=== PATIENT | male | born 1955 | race Caucasian/White ===

== ENCOUNTER 2020-02-14 12:40 | Emergency (ER) | payer OTHER ==
[~2020-02-14] VITALS: Ht 185.4 cm; Wt 106.6 kg
[~2020-02-14 12:40] MED LIST: BUPROPION XL150 MG PO; CEPHALEXIN500 MG PO; HYDROCHLOROTHIA25 MG PO; LASIX20 MG PO; LOVASTATIN20 MG PO; NORCO 5-325 TA1 EACH PO; POTASSIUM CHLO10 ME1 PO; POTASSIUM CHLO20 ME1 PO
[2020-02-14] MEDS ORDERED: CO Q-1010 MG PO (12:53)
[2020-02-14] MEDS ORDERED: AUGMENTIN 875-1 EACH PO (13:07)
== END 2020-02-14 13:22 | disposition home or self-care (01) ==
LOC: ED 12:40
DX: S61.412A Laceration without foreign body of left hand, initial encounter (principal); I10 Essential (primary) hypertension; Z85.46 Personal history of malignant neoplasm of prostate; W26.0XXA Contact with knife, initial encounter; Z88.8 Allergy status to other drugs, medicaments and biological substances; Z79.899 Other long term (current) drug therapy
CPT/HCPCS: 12001; 90471; 90715; 99282-25

== ENCOUNTER 2022-09-21 06:33 | Day surgery (SDC) | payer MEDICARE, OTHER ==
[~2022-09-21] VITALS: Ht 182.9 cm; Wt 105.0 kg
[~2022-09-21 06:33] MED LIST changes: +ALEVE220 MG PO; +ALLER-TEC10 MG PO; +AUGMENTIN 875-1 EACH PO; +BENADRYL25 MG PO; +CO Q-1010 MG PO; +FLAXSEED OIL1000 M1 PO; +GLUCOSAMINE CH1 EAC1 PO; +LISINOPRIL5 MG PO; +PRILOSEC OTC20 MG PO; +TYLENOL EXTRA500 MG PO
[2022-09-21 07:18] VITALS: BP 143/75
--- NOTE | 2022-09-21 08:33 | NUR ---
PT ALERT, ORIENTED AND PT HAS HAD SCOPE PREVIOUS. HIS WILL BE HERE AT [place]. ALL QUESTIONS ASKED ANSWERED. PT REQUESTED PRAYER, GAVE BLESSING. WILL FOLLOW NEEDED
--- NOTE | 2022-09-21 09:34 | NUR ---
09/21/22 0934 Gisela Bennett 0910-PATIENT ARRIVED TO PACU ON 2L NC RR EVEN. PATIENT LAYING LEFT LATERAL REACTIVE TO VERBAL STIMULI DENIES PAIN OR NAUSEA. ABDOMEN SOFT. IVF INFUSING. PATIENT DOZES BACK TO SLEEP
[2022-09-21 10:05] VITALS: BP 114/74
--- NOTE | 2022-09-21 13:22 | OR ---
[facility] [address], [place] [address] Signed DATE OF OPERATION: 09/21/2022 SURGEON: Lucho Lockett MD PREOPERATIVE DIAGNOSES: 1. Screening. 2. Minimal diverticulosis. 3. Moderate internal and external hemorrhoids. POSTOPERATIVE DIAGNOSES: 1. Almrxyl-wi-fykvftii sigmoid diverticulosis. 2. Tortuous, narrowed sigmoid colon. 3. A 4 mm polypoid lesion at 35 cm in sigmoid colon. 4. Moderate internal and external hemorrhoids. PROCEDURE: Colonoscopy with hot biopsy. ESTIMATED BLOOD LOSS: None. INDICATIONS: Daniel is a 67-year-old gentleman, asked to see me for a followup screening colonoscopy. He has no family history of colon cancer or polyps. I helped him with his initial screening colonoscopy in 2011 at the age of 55. He had moderate internal and external hemorrhoids at that time with minimal diverticulosis. He had done well with Versed and fentanyl. We asked him to return in 10 years for followup. 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 In the office, I had given him a pamphlet on colonoscopy. We had reviewed the nature of the test. There is risk including, but not limited to gas bloating, crampy abdominal pain, bleeding, perforation requiring surgery, and missed diagnosis. We also reviewed the need for IV conscious sedation. He had expressed understanding and wished to proceed. PROCEDURE NOTE: Daniel was taken into our endoscopy suite and placed in the left lateral decubitus position. He was given a total of 9 mg of Versed and 125 mcg of fentanyl. A digital rectal exam was performed. He does have moderate external hemorrhoids, slightly more on the right than on the left. He has good sphincter tone. The prostate is absent. There were no nodules. No masses. The adult colonoscope was then introduced and advanced all around into the cecum under direct visualization of the camera. It did take a little Electronically Signed By: LUCHO LOCKETT MD 09/21/22 1322 PATIENT NAME: DANIEL ASH OPERATIVE REPORT DATE OF : 57 REPORT #: [id number] PHYSICIAN: LUCHO LOCKETT MD PCP: NO PRIMARY CARE PHYSICIAN REPORT IS CONFIDENTIAL AND NOT TO BE RELEASED WITHOUT AUTHORIZATION [facility] [address] [place], [place] [address] Signed extra sedation and abdominal compression in order to advance the scope direct into the cecum itself. Overall, his prep was good. He had some areas of liquid particulate stool matter, most of that was suctioned out. We slowly withdrawn the scope, and he has some diverticula in the left, sigmoid colon. They were olspdow-gd-zvxgvvzc in size, waadpoo-kp-yblvknoy in number, and scattered about. He had a small lesion next to the diverticulum, may be some granuloma tissue. We biopsied and destroyed it completely with mild cautery. We found that his sigmoid colon was a bit narrowed and tortuous on this occasion. We think his diverticulitis a little more than he had last time. The rectum was unremarkable. Upon retroflexion of the scope, he does have moderate internal hemorrhoid columns as well. After this, the gas was suctioned out, the colonoscope was removed. Daniel tolerated the procedure quite well. RECOMMENDATIONS: I will see Daniel back in my office in 7 to 14 days to review his results. Lucho Lockett MD ALB/MODL /[id number] cc: Patient Chart MD Marianne Valera PA Copies: LUCHO LOCKETT MD ~ Electronically Signed By: LUCHO LOCKETT MD 09/21/22 1322 PATIENT NAME: DANIEL ASH KOSTA OPERATIVE REPORT DATE OF : 57 REPORT #: [id number] PHYSICIAN: LUCHO LOCKETT MD PCP: NO PRIMARY CARE PHYSICIAN REPORT IS CONFIDENTIAL AND NOT TO BE RELEASED WITHOUT AUTHORIZATION
--- NOTE | 2022-09-22 16:58 | PATH ---
[facility] [address] [place], [place] [address] Signed SPECIMEN(S): A SIGMOID POLYP SPECIMEN SOURCE: A. SIGMOID POLYP CLINICAL HISTORY: Screening, hx of diverticulosis, internal and external hemorrhoids. Post Op: Colon polyps, diverticulosis, internal and external hemorrhoids, tortuous colon. FINAL PATHOLOGIC DIAGNOSIS: Sigmoid polyp: - Hyperplastic polyp (two fragments). - Granulation tissue with acute and chronic inflammation (one fragment). JVR:[facility]:C2NR MICROSCOPIC EXAMINATION: Histologic sections of all submitted blocks are examined by light microscopy. These findings, together with the gross examination, support the pathologic diagnosis. GROSS DESCRIPTION: The specimen, labeled and designated "Ash, sigmoid polyp," is received in formalin and consists of three montero soft tissue fragments, ranging from 0.1-0.2 cm. Entirely submitted in (A1). VB (under the direct supervision of a pathologist) The Gross Description was prepared using a voice recognition system. The report was reviewed for accuracy; however, sound-alike word errors, addition and/or deletions may occur. If there is any question about this report, please contact Client Services. PERFORMING LABORATORY: The technical component was performed by [facility], [address] [place] [id number] (CLIA# [id number]). Professional interpretation was performed by [facility] - [facility], [address] [place] [id number] (CLIA#: [id number]). Diagnostician: Westley Stern MD Pathologist Electronically Signed 09/22/2022 PATIENT NAME: TALISHA ASH PATHOLOGY DATE OF : 57 REPORT #: [id number] PHYSICIAN: [facility] PCP: NO PRIMARY CARE PHYSICIAN REPORT IS CONFIDENTIAL AND NOT TO BE RELEASED WITHOUT AUTHORIZATION [address] [place], [place] [address] Signed Copies: ~ PATIENT NAME: TALISHA ASH PATHOLOGY DATE OF : 57 REPORT #: [id number] PHYSICIAN: [facility] PCP: NO PRIMARY CARE PHYSICIAN REPORT IS CONFIDENTIAL AND NOT TO BE RELEASED WITHOUT AUTHORIZATION
== END 2022-09-21 10:15 | disposition home or self-care (01) ==
LOC: DS 06:33 → OPS 06:33
PROVIDERS: ATTEND Colon & Rectal Surgery
PROC: 0DBN8ZX Excision of Sigmoid Colon, Via Natural or Artificial Opening Endoscopic, Diagnostic (ICD-10-PCS; principal; 2022-09-21 08:15)
DX: Z12.11 Encounter for screening for malignant neoplasm of colon (principal); Z85.46 Personal history of malignant neoplasm of prostate; M19.90 Unspecified osteoarthritis, unspecified site; K21.9 Gastro-esophageal reflux disease without esophagitis; I10 Essential (primary) hypertension; E78.5 Hyperlipidemia, unspecified; F32.9 Major depressive disorder, single episode, unspecified; K64.4 Residual hemorrhoidal skin tags; K64.8 Other hemorrhoids; K63.5 Polyp of colon; K63.89 Other specified diseases of intestine; K57.30 Diverticulosis of large intestine without perforation or abscess without bleeding
CPT/HCPCS: 99153; G0500; J2250; J3010; J7121

== ENCOUNTER 2023-03-18 13:48 | Inpatient (IN) | payer MEDICARE, OTHER ==
[~2023-03-18] VITALS: Ht 182.9 cm; Wt 101.6 kg
[2023-03-18 15:34] LABS: BASOPHILS 0.2 % (0-2); EOSINOPHILS 0.4 % (0-6); HEMATOCRIT 47.6 % (35.0-50.0); LYMPHOCYTES 3.8 % (24-44); MCH 30.9 (27-36); MCHC 33.6 g/dl (30-36); MCV 92.1 fl (81-99); MONOCYTES 0.8 % (0-12); NEUTROPHILS 94.8 % (39-80); PLATELET COUNT 226 K/uL (140-440); RBC 5.17 M/ul (4.3-5.7); RDW 13.3 (10.5-15.0)
[2023-03-18 15:45] LABS: BILIRUBIN, URINE POSITIVE (negative); BLOOD/HGB, URINE SMALL (Negative); KETONE, URINE TRACE (Negative); LEUK ESTERASE, URINE NEGATIVE (negative); NITRITE, URINE NEGATIVE (negative)
[2023-03-18 15:51] LABS: WHITE BLOOD CELLS, URINE 0-1 /HPF (0-5)
[2023-03-18 15:52] LABS: BACTERIA, URINE 2+ /hpf (negative); EPITHELIAL CELLS, URINE SQUAMOUS 1+ /lpf (0-1+); REFLEX CULTURE, URINE Yes (No)
[2023-03-18 15:56] LABS: ALBUMIN 4.3 g/dL (3.4-5.0); ALBUMIN/GLOBULIN RATIO 1.34 (1.1-2.4); ALKALINE PHOSPHATASE 327 U/L (46-116); ALT (SGPT) 451 U/L (14-59); ANION GAP 17.8 (7-21); AST (SGOT) 964 U/L (15-37); BILIRUBIN, TOTAL 3.7 ng/dL (0.2-1.0); BUN/CREATININE RATIO 11.25 (6.0-28.6); CALCIUM 9.6 mg/dL (8.5-10.1); CARBON DIOXIDE 26 mmol/L (21-32); CHLORIDE 100 mmol/L (98-107); CREATININE, SERUM 1.51 mg/dL (0.70-1.30); GLOMERULAR FILTRATION RATE,EST 51 mL/min (>60); POTASSIUM 3.8 mmol/L (3.5-5.1); PROTEIN, TOTAL 7.5 g/dL (6.4-8.2); UREA NITROGEN 17 mg/dL (7-18)
[2023-03-18 18:20] VITALS: BP 115/67
--- NOTE | 2023-03-18 18:41 | NUR ---
PATIENT TO THE MEDICAL FLOOR. PT ALERT AND ORIENTED X4. PATIENT REPORTS 3/10 ABDOMINAL PAIN, NO NAUSEA AT THIS MOMENT. IV FLUIDS STARTED AT THIS TIME PER PROVIDER ORDER. VITAL SIGNS STABLE. SECOND BLOOD CULTURES OBTAINED FROM LAB AT THIS TIME. PATIENT ORIENTED TO ROOM AND CALL LIGHT.
[2023-03-18 19:44] VITALS: BP 102/62
--- NOTE | 2023-03-18 23:30 | NUR ---
REPORT RECEIVED FROM GREGORY BRIONES. PT WALKING HALLS AT THIS TIME. NO NEEDS STATED.
--- NOTE | 2023-03-19 00:09 | NUR ---
NEW BAG IV FLUIDS PROVIDED. IV WNL, FLUSHED WELL. URINAL EMPTIED. PT DENIES PAIN. PT STATES NO OTHER NEEDS AT THIS TIME. CALL LIGHT IN REACH.
[2023-03-19 01:53] VITALS: BP 108/59
--- NOTE | 2023-03-19 02:08 | NUR ---
VS. I&O AND FOCUSED ASSESSMENT COMPLETED. PT REPORTS MILD ABD DISTENTION. DENIES PAIN. ABD SOFT, NONTENDER, BOWEL TONES ACTIVE. SCHEDULED MED PROVIDED. IV WNL, FLUSHED WELL. EDUCATION PROVIDED ABOUT BOWEL REST AND REDUCING THE AMOUNT OF ICE CHIPS THE PT IS CONSUMING. PT VERBALIZING UNDERSTANDING OF EDUCATION. CALL LIGHT IN REACH.
--- NOTE | 2023-03-19 04:05 | NUR ---
VS AND I&O COMPLETED. SPO2 99% ON RA. PT HAS BEEN NPO WITH CHIPS FOR COMFORT, TOLERATING WELL. PT DENIES PAIN. NO OTHER NEEDS AT THIS TIME. CALL LIGHT IN REACH.
[2023-03-19 04:06] VITALS: BP 133/73
--- NOTE | 2023-03-19 05:29 | NUR ---
SCHEDULED MED PROVIDED. PT DENIES PAIN AT THIS TIME. PT UP WALKING IN HALLS.
[2023-03-19 05:49] LABS: BASOPHILS 0.2 % (0-2); EOSINOPHILS 0.3 % (0-6); HEMATOCRIT 40.4 % (35.0-50.0); HEMOGLOBIN 13.4 g/dL (12.0-18.0); LYMPHOCYTES 1.5 % (24-44); MCH 30.3 (27-36); MCHC 33.2 g/dl (30-36); MCV 91.1 fl (81-99); MONOCYTES 5.8 % (0-12); NEUTROPHILS 92.2 % (39-80); PLATELET COUNT 136 K/uL (140-440); RBC 4.43 M/ul (4.3-5.7); RDW 13.3 (10.5-15.0)
[2023-03-19 06:04] LABS: BUN/CREATININE RATIO 14.72 (6.0-28.6); CALCIUM 8.5 mg/dL (8.5-10.1); CREATININE, SERUM 1.63 mg/dL (0.70-1.30); MAGNESIUM 1.9 mg/dL (1.8-2.4); PHOSPHORUS, INORGANIC 4.3 mg/dL (2.5-4.9)
[2023-03-19 06:33] LABS: ALBUMIN 3.2 g/dL (3.4-5.0); ALBUMIN/GLOBULIN RATIO 1.14 (1.1-2.4); BILIRUBIN, DIRECT 3.7 mg/dL (0.0-0.2); BILIRUBIN, INDIRECT 1.5 (0.1-0.7); BILIRUBIN, TOTAL 5.2 ng/dL (0.2-1.0)
[2023-03-19 06:35] LABS: CHOLESTEROL 130 mg/dL (<200); CHOLESTEROL/HDL RATIO 1.6; HDL CHOLESTEROL 82 (40-60); LDL CHOLESTEROL 30 mg/dL (< 129); TRIGLYCERIDES 90 ng/dL (<150); VLDL CHOLESTEROL 18
--- NOTE | 2023-03-19 06:38 | NUR ---
PT RESTING IN BED, EYES CLOSED. RR EVEN, UNLABORED. CALL LIGHT IN REACH.
[2023-03-19 06:39] LABS: INR 1.26 (0.80-1.30); PROTIME 15.4 Sec (11.2-14.2)
[2023-03-19 06:42] LABS: PARTIAL THROMBOPLASTIN TIME 27.8 Sec (22.9-41.3)
--- NOTE | 2023-03-19 09:25 | NUR ---
PATIENT SITTING UP IN BED WATCHING TV, NO DISTRESS. PATIENT REPORTS HE FEELS MUCH BETTER TODAY, DENIES NAUSEA. PATIENT'S ABDOMEN IS SOFT, + BOWEL TONES. PATIENT REPORTS HE IS WANTING TO DISCHARGE HOME HE FEELS BETTER. WENT OVER MORNING LABS WITH PT AT THIS TIME. ENCOURAGED PT TO CALL IF HE HAS NEEDS. IV FLUIDS RUNNING PER PROVIDER ORDER.
--- NOTE | 2023-03-19 10:17 | NUR ---
PATIENT LEFT FLOOR FOR CT.
[2023-03-19 10:24] VITALS: BP 119/62
[2023-03-19] MEDS ORDERED: PEPCID AC20 MG PO (10:32)
--- NOTE | 2023-03-19 10:37 | NUR ---
DR. BENSON UPDATED REGARDING MOST RECENT TEMP OF 100.3F PO. PENDING NEW ORDERS FOR FEVER.
--- NOTE | 2023-03-19 10:37 | NUR ---
MED REC COMPLETE
--- NOTE | 2023-03-19 10:57 | CONS ---
[facility] [address] [place], [place] [address] Signed DATE OF CONSULTATION: 03/19/2023 CHIEF COMPLAINT: Epigastric abdominal pain. HISTORY OF PRESENT ILLNESS: Daniel is a 67-year-old gentleman, I have known for quite some time. 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 I actually helped him with a colonoscopy in September of this year, where he had a little bit of diverticulosis along with hyperplastic polyp and moderate internal and external hemorrhoids. He told me at that time he had been in the hospital for pancreatitis, it was felt that his hydrochlorothiazide was the culprit. Apparently, there were no gallstones found. He said he had been feeling much better. He also told me he likes to have less than 8 ounces of wine each night at supper with his . Two days ago, he started to feel the epigastric abdominal pain. He recognized it immediately. He put himself on a liquid diet with water in Bouillon cubes and body was doing better. On Tuesday, he did have hot boiled egg, but overall was not eating solid foods and by Tuesday night he came into the emergency room with increasing abdominal pain. He said he was having fever and chills and was feeling quite miserable. He was seen and evaluated by our ER physician. His vital signs were fine, but his laboratory work was clearly abnormal. At that time, he was tender in the epigastric area. He did not have a repeat CT scan. They went ahead and did an ultrasound on this occasion, and there are no stones seen. There is thickening of the gallbladder wall with some pericholecystic fluid. His pancreatic duct is prominent at 4 mm. The common bile duct was 8.2 mm. There is no ascites. So, not all the ducts in the biliary tree were dilated and the radiologist was concerned he may have choledocholithiasis. I have been asked to admit him last night as a general surgeon on-call. He received IV fluids and cefepime and Flagyl. He is feeling much better. In fact this morning, his eyes are jaundiced, but otherwise he looks quite unremarkable. His is at the bedside. In fact, he told me he wanted to go home. I told him that would be a bit unusual seeing his initial lab work and knowing that blood work has gotten a little worse. Unfortunately, our lab had only checked lipase up to 375. So, he along with his elevated liver function tests and white count. Also, interestingly he had 2+ bacteria in the urine, which is a bit unusual for a man. We do have a pending urine culture. I did have my hospitalist service see him yesterday as well and their note has been reviewed. PAST MEDICAL HISTORY: Prostate cancer, hypertension, gastroesophageal reflux disease, seasonal allergies, cervical degenerative disc disease, malignant testicular neoplasm, urinary incontinence, depression, and hyperlipidemia. PAST SURGICAL HISTORY: Includes the left middle finger surgery, appendectomy, tonsillectomy, vasectomy, right Electronically Signed By: LUCHO SAENZ MD 03/19/23 1057 PATIENT NAME: DANIEL ASH CONSULTATION DATE OF : 57 REPORT #: [id number] PHYSICIAN: LUCHO SAENZ MD PCP: MIGNON GORDON PA-C REPORT IS CONFIDENTIAL AND NOT TO BE RELEASED WITHOUT AUTHORIZATION [address] [address] Signed orchiectomy in 1997, rotator cuff repair in 2011. I did his colonoscopy in 2011 and 2022. He has also had a radical prostatectomy in 2013. FAMILY HISTORY: Father had alcohol abuse, cancer, stroke, polio, coronary artery disease, cardiomyopathy. Mother had mental illness and pulmonary embolism. His paternal grandmother had ovarian cancer. His brother had depression, migraine headaches. His sister has depression, migraine headaches and diabetes. Daughter has migraine headaches. SOCIAL HISTORY: He is and has three children. He has a farm with hay along with cattle, of course he gets daily exercise. He likes to have some coffee every morning, he likes to have about 8 ounces of wine each evening. He does not smoke. He quit chewing tobacco. MEDICATIONS: Tylenol, glucosamine, magnesium, naproxen, Prilosec, bupropion, Benadryl, lovastatin, potassium, flaxseed oil, famotidine, CoQ10, Claritin, and Aleve. ALLERGIES: Demerol causes anaphylaxis, Vistaril and IV contrast apparently caused anaphylaxis when they were evaluating his testicular cancer. PHYSICAL EXAMINATION: VITAL SIGNS: Blood pressure is 133/73, heart rate is 81, respiratory rate is 18, temperature 97.8, and 99% on room air. He is 6 feet tall, 101 kg with a body mass index of 30. GENERAL: Daniel is a 67-year-old gentleman, lying supine in his hospital bed with his at the bedside. He looks incredibly good. HEENT: He does have scleral icterus, but he said all the pain in the epigastric area is gone. He said he feels a little full in the epigastric area, but not particularly so. LUNGS: Clear to auscultation bilaterally. HEART: Regular rate and rhythm without murmurs. ABDOMEN: Mildly protuberant at baseline, but he is completely softy. He really has no fullness or pain in the epigastric or right upper quadrant area. LABORATORY DATA: His white blood cell count was 18, it is now 19; his hemoglobin was 16, is now 13; neutrophils are 94, now 92; his platelets dropped from 226 down to 136. The BUN was 17, it is now 24. The creatinine is 1.5, it is now 1.63. His glucose is 107. INR 1.26. His total bilirubin is 3.7, it is up to 5.2 with a direct bilirubin at 3.7; AST was 964, it is now 913; ALT was 451, it is now ; alkaline phosphatase was 327, is now 389. Lipase has been repeated and it is greater than 375. Albumin was 4.3, it is 3.2. His triglycerides are 90. Urinalysis showed 2+ bacteria, so urine cultures been sent. Electronically Signed By: LUCHO SAENZ MD 03/19/23 1057 PATIENT NAME: DANIEL ASH CONSULTATION DATE OF : 57 REPORT #: [id number] PHYSICIAN: LUCHO SAENZ MD PCP: MIGNON GORDON PA-C REPORT IS CONFIDENTIAL AND NOT TO BE RELEASED WITHOUT AUTHORIZATION [facility] [address] [place], [place] [address] Signed RADIOGRAPHIC STUDIES: An ultrasound was done and he certainly has some thickening of the gallbladder wall with pericholecystic fluid. The pancreatic duct is prominent 4 mm. The common bile duct is 8.2 mm. The radiologist is concerned that there could be choledocholithiasis. ASSESSMENT AND PLAN: Daniel is a 67-year-old gentleman, who presents with recurrent pancreatitis. He has been off the hydrochlorothiazide. He has been drinking less than 8 ounces of wine every day for many years. He clearly has elevated labs, but clinically he looks much better with one dose of cefepime and Flagyl. His rigors and his fever and chills have gone away. It is amazing that he has not have any fullness in the upper abdomen to direct palpation. In fact, he wanted to go home. I told Daniel that is really not our advice from a medical standpoint. We decided we need to do a CT scan at least this morning. We talked with the radiology services manager and they are going to go ahead and do a without contrast. We will see what that shows this. I did bring up brochure on the gallbladder. We went to a page by page in great detail to look over the anatomy in the function of the gallbladder and liver and the pancreas. We have also looked at ERCP. He is aware of endoscopic ultrasound as well. Of course, MRI is an option, but we gently do not have that available to us on the weekends. Hopefully, he will continue to improve. He understands that if he needs a higher level of care, we would have to send him out of our region to the larger metropolitan areas. He said he wants to ahead for [place] about April 25, which is looking less likely all the time. At this point, we will get the CT scan and we will proceed from there. I have discussed this with Daniel and his along with our nurse. He has expressed understanding and agrees with the above plan. Lucho Saenz MD ALB/MODL /[id number] cc: Patient Chart MELECIO Leblanc MD Electronically Signed By: LUCHO SAENZ MD 03/19/23 1057 PATIENT NAME: DANIEL ASH CONSULTATION DATE OF : 57 REPORT #: [id number] PHYSICIAN: LUCHO SAENZ MD PCP: IMGNON GORDON PA-C REPORT IS CONFIDENTIAL AND NOT TO BE RELEASED WITHOUT AUTHORIZATION [address] [address] Signed Copies: LUCHO SAENZ MD ~ Electronically Signed By: LUCHO SAENZ MD 03/19/23 1057 PATIENT NAME: DANIEL ASH CONSULTATION DATE OF : 57 REPORT #: [id number] PHYSICIAN: LUCHO SAENZ MD PCP: MIGNON GORDON PA-C REPORT IS CONFIDENTIAL AND NOT TO BE RELEASED WITHOUT AUTHORIZATION
--- NOTE | 2023-03-19 12:38 | NUR ---
PATIENT IN BED RESTING, EYES CLOSED, RESPIRATIONS EVEN AND NON LABORED. PATIENT HAS NO NOTABLE DISTRESS. IV FLUIDS INFUSING PER PROVIDER ORDER. PERSONAL SUPPLIES AND CALL LIGHT WITHIN REACH.
[2023-03-19 13:01] VITALS: BP 120/72
[2023-03-19 17:06] VITALS: BP 135/65
--- NOTE | 2023-03-19 18:14 | NUR ---
Patient in bed watching tv, no distress. IV sites remain intact, fluid infusing per provider order. Patient denies pain and nausea at this time. Pt's at bedside, no current needs.
--- NOTE | 2023-03-19 19:21 | NUR ---
REPORT RECEIVED FROM DAY SHIFT RN. PT AMB IN REARDON WITH , JACQUE WELL. BACK TO BED. DENIES PAIN OR NAUSEA. DENIES NEEDS. WHITE BOARD UPDATED. CALL LIGHT IN REACH.
[2023-03-19 20:07] VITALS: BP 127/66
[2023-03-19 20:12] LABS: BASOPHILS 0.1 % (0-2); EOSINOPHILS 0.7 % (0-6); HEMATOCRIT 36.7 % (35.0-50.0); HEMOGLOBIN 12.6 g/dL (12.0-18.0); LYMPHOCYTES 3.4 % (24-44); MCH 30.9 (27-36); MCHC 34.4 g/dl (30-36); MONOCYTES 9.6 % (0-12); NEUTROPHILS 86.2 % (39-80); PLATELET COUNT 111 K/uL (140-440); RBC 4.08 M/ul (4.3-5.7); RDW 13.4 (10.5-15.0)
--- NOTE | 2023-03-19 20:28 | NUR ---
EVENING ASSESSMENT COMPLETE. SCHEDULED MEDS ADMIN PER EMAR. PT DENIES ABD PAIN. REPORTS A "BOUT OF NAUSEA" WHILE READING THAT HAS SINCE SUBSIDED. VS AND I&O OBTAINED. TEMP 99.8. LUNGS CLEAR. ABD SOFT. BOWEL TONES ACTIVE. PT REPORTS FLATUS. PT DENIES QUESTIONS OR CONCERNS. CALL LIGHT IN REACH.
[2023-03-19 20:30] LABS: ALBUMIN/GLOBULIN RATIO 1.15 (1.1-2.4); ANION GAP 12.4 (7-21); BILIRUBIN, TOTAL 3.9 ng/dL (0.2-1.0); BUN/CREATININE RATIO 15.33 (6.0-28.6); CALCIUM 8.5 mg/dL (8.5-10.1); CREATININE, SERUM 1.5 mg/dL (0.70-1.30); POTASSIUM 3.4 mmol/L (3.5-5.1); PROTEIN, TOTAL 5.6 g/dL (6.4-8.2)
--- NOTE | 2023-03-19 21:00 | NUR ---
TAKING OFF RT SERVICE. PLEASE CALL WITH CONCERNS OR O2 USE.
--- NOTE | 2023-03-19 21:55 | NUR ---
PT RESTING WITH EYES CLOSED. AWAKENS EASILY. REPORTS HEADACHE PAIN RESOLVED. TEMP 98.4. IV POTASSIUM INFUSING PER ORDER. NO FURTHER NEEDS.
--- NOTE | 2023-03-19 23:20 | NUR ---
PT RESTING WITH EYES CLOSED. RESPIRATIONS EVEN. BAG 2 OF 4 POTASSIUM INFUSING PER ORDER.
--- NOTE | 2023-03-20 00:40 | NUR ---
BAG 3 OF 4 POTASSIUM INFUSING PER ORDER. PT DENIES PAIN OR NAUSEA. ORAL TEMP 99.3. URINAL EMPTIED. NO FURTHER NEEDS.
--- NOTE | 2023-03-20 02:00 | NUR ---
BAG 4 OF 4 IV POTASSIUM INFUSING PER ORDER. IV ABX INFUSING WNL. PT RESTING ON LEFT SIDE WITH EYES CLOSED. RESPIRATIONS EVEN. CALL LIGHT IN REACH.
--- NOTE | 2023-03-20 03:24 | NUR ---
IV PUMP ALARMING. ISSUE RESOLVED. PT DENIES PAIN OR NAUSEA. BOWEL TONES ACTIVE. ABD SOFT. PT REPORTS OCCASIONAL FLATUS. NO NEEDS AT THIS TIME. CALL LIGHT IN REACH.
[2023-03-20 05:16] VITALS: BP 132/80
--- NOTE | 2023-03-20 05:18 | NUR ---
PT UP TO AMB X 2 LAPS AROUND NURSING STATION. JACQUE WELL. BACK TO BED. VS AND I&O OBTAINED. PT AFEBRILE. DENIES PAIN OR NAUSEA. PT REMAINS NPO. IVF INFUSING PER ORDER. NO NEEDS AT THIS TIME. CALL LIGHT IN REACH.
[2023-03-20 05:41] LABS: BASOPHILS 0.2 % (0-2); EOSINOPHILS 1.5 % (0-6); HEMATOCRIT 34.6 % (35.0-50.0); LYMPHOCYTES 3.6 % (24-44); MCH 31.2 (27-36); MCHC 34.8 g/dl (30-36); MCV 89.6 fl (81-99); MONOCYTES 10.5 % (0-12); NEUTROPHILS 84.2 % (39-80); PLATELET COUNT 112 K/uL (140-440); RBC 3.87 M/ul (4.3-5.7); RDW 13.1 (10.5-15.0)
[2023-03-20 06:09] LABS: ALBUMIN 2.8 g/dL (3.4-5.0); ANION GAP 11.8 (7-21); BILIRUBIN, TOTAL 2.9 ng/dL (0.2-1.0); BUN/CREATININE RATIO 16.93 (6.0-28.6); CALCIUM 8.6 mg/dL (8.5-10.1); CREATININE, SERUM 1.24 mg/dL (0.70-1.30); POTASSIUM 3.8 mmol/L (3.5-5.1); PROTEIN, TOTAL 5.6 g/dL (6.4-8.2)
--- NOTE | 2023-03-20 07:49 | NUR ---
NEW BAG OF LR HANGING, IV MAXIPIME INFUSING FOR 4 HOURS. PATIENT IS RESTING IN BED AND TALKING ON THE PHONE. PATIENT REPORTS THAT HE IS FEELING "MUCH BETTER!" PATIENT DENIES OTHER NEEDS AT THIS TIME.
--- NOTE | 2023-03-20 08:00 | NUR ---
REPORT RECEIVED FROM ANSELMO SOTO. PT RESTING IN BED, REPORTS 2/10 PAIN. PT DENIES NEED FOR PAIN MEDICATION. NO ADDITIONAL REQUESTS OR COMPLAINTS. CALL LIGHT WIHTIN REACH. BED RAILS UP.
--- NOTE | 2023-03-20 08:12 | NUR ---
CALL FROM LAB THAT PATIENT HAS GRAM + COCCI IN AEROBIC BOTTLE ONLY. PRIMARY NURSE NOTIFIED WELL.
--- NOTE | 2023-03-20 08:34 | NUR ---
MORNING ASSESSMENT AND MEDICAITON DUE. PT CONTINUES RESTING IN BED, WATCHING TV. PT REPORTS DR. SAENZ WAS IN TO SEE HIM. PT VERBALIZES UNDERSTANDING OF PLAN OF CARE PER DR. SAENZ. PT STATES ALL HIS QUESTIONS HAVE BEEN ANSWERED. PT EXCITED FOR CLEAR LIQUID DIET, WATER AND ICE CHIPS PROVIDED PER PT REQUEST. PT EPROTTS 1/10 PAIN IN ABDOMEN AT THIS TIME. PT DENIES NAUSEA. PT DENIES NEED FOR PAIN MEDICAITON. PT ALERT AND ORIENTED TO ALL. LUNG SOUNDS CLEAR. HEART TONES REGULAR. ABDOMEN SOFT BUT TENDER TO TOUCH ESPICIALLY IN RIGHT UPPER QUADRANT. BOWEL TONES ACTIVE ON LEFT SIDE BUT TYMPANIC ON RIGHT SIDE. PTS ARRIVES, UPDATED ON PLAN OF CARE AND PT STATUS. PT DENIES ADDITIONAL REQUESTS OR COMPLAINTS. CALL LIGHT WIHTIN REACH. BED RAILS UP.
[2023-03-20 09:30] VITALS: BP 123/67
--- NOTE | 2023-03-20 10:05 | NUR ---
IV ABX DUE. PT UP TO CHAIR, PLAYING CARDS WITH HIS . PT REPORTS 1/10 ABDOMINAL PAIN AT THIS TIME AND DENIES NASUEA. IV ABX STARTED (SEE MAR). NO ADDITIONAL REQUESTS OR COMPLAINTS. CALL LIGHT WITHIN REACH.
--- NOTE | 2023-03-20 11:37 | NUR ---
HOURLY ROUNDING: PT RESTING IN BED WITH EYES CLOSED. RESPRIATIONS EVEN AND UNLABORED. HEAD OF BED AT 30 DEGREES. PT ALLOWED TO REST. CALL LIGHT WITHIN REACH. BED RAILS UP.
--- NOTE | 2023-03-20 12:16 | NUR ---
HOURLY ROUNDING: PT UP TO CHAIR FOR LUNCH AND TO VISIT WITH FRIENDS WHO CAME TO VISIT. PT CONTINUES TO REPORT 1-2/10 PAIN IN ABDOMEN AND DENIES NEED FOR PAIN MEDICATION. PT DENIES NAUSEA. PT EDUCATION DONE REGARDING PANCREATITIS. PT DENIES ADDITIONAL REQUESTS OR COMPLAINTS. CALL LIGHT WITHIN REACH.
--- NOTE | 2023-03-20 13:01 | NUR ---
HOURLY ROUNDING: THIS RN TO ROOM WITH DR. BENSON FOR ROUNDS. PT RESTING IN BED. PT REPORTS PAIN REMAINS WELL CONTROLLED. PT DENIES NAUSEA. PT REPORTS NO INCREASED PAIN WITH CLEAR LIQUIDS FOR LUNCH. PLAN OF CARE REVIEWED WITH PT. PT VERBALIZES UNDERSTANDING AND STATES HIS QUESTIONS HAVE BEEN ANSWERED. NO ADDITIONAL REQUESTS OR COMPLAINTS. CALL LIGHT WITHIN REACH. BED RAILS UP.
--- NOTE | 2023-03-20 14:11 | NUR ---
AFTERNOON ASSESSMENT AND MEDICATION DUE. PT SITTING ON EDGE OF BED. PT REPORTS HE TRIED TO HAVE A BOWEL MOVEMENT BUT "ONLY GAS CAME OUT." PT DENIES PAIN AND NASUEA. ABDOMEN REMAINS SOFT BUT MILDY TENDER WITH PALPATION. BOWEL TONES ACTIVE IN LOWER QUADRANTS, ACTIVE TO TYMPANIC IN UPPER QUADRANTS. PT REQUESTS TO HAVE A SHOWER PRIORT TO AFTERNOON ABX INFUSION. IV SITES COVERED. PT UP TO SHOWER. INDEPENANT AND STEADY ON FEET WITH SHOWER. PT CONTINEUS TO REPORT MILD DISTENTION TO ABDOMEN. MILD JAUNDICE SEEN IN SCLEAR OF EYES. PT ASKED TO LOOK IN MIRROR AND DENIES SEEING ANY SIGNIFICANT YELLOWING OF EYES. NO ADDITIONAL REQUESTS OR COMPLAINTS. CALL LIGHT WITHIN REACH.
[2023-03-20 14:28] VITALS: BP 132/71
--- NOTE | 2023-03-20 14:36 | NUR ---
PT FINISHED WITH SHOWER AND BACK TO BED. PRODUCTION COOK WORKING WITH PT FOR AFTERNOON VITALS AND I/Os. PT REPORTS 04/13 HEADACHE AND REQUESTS COFFEE STATING "I THINK THAT'S WHY I HAVE A HEADACHE." IV ABX GIVEN, IV SITE REMAINS WNL WITH NO S/S OF PHELBITIS PRESENT. PT DENIES ABDOMINAL PAIN AT THIS TIME. URINAL EMPTIED OF 300ML DARK TEA COLORED URINE. NO ADDITIONAL REQUESTS OR COMPLAINTS. CALL LIGHT WITHINR EACH. BED RAILS UP.
--- NOTE | 2023-03-20 15:46 | NUR ---
THIS RN TO ROOM TO CHECK ON PT. PT RESTING WITH EYES CLOSED. RESPRIATIONS EVEN AND UNLABORED. PTS AT BEDSIDE. BED RAILS UP. CALL LIGHT WITHIN REACH. PT ALLOWED TO REST.
--- NOTE | 2023-03-20 15:50 | NUR ---
PT HERE FOR PANCREATITIS. PT INDEPENDANT IN ROOM AND STEADY ON FEET THIS SHIFT. PT ADVANCED TO CLEAR LIQUID DIET, TOLERATING WELL. PT ALERT AND OREINTED THROUGHOUT SHIFT. PT REPORTS 0-2/10 ABDOMINAL PAIN WITH NO PAIN MEDICATIONS NEEDED SO FAR THIS SHIFT. PT HAS MILD HEADACHE THIS SHIFT, COFFEE PROVIDED. ABDOMEN SOFT BUT TENDER, BOWEL TONES ACTIVE IN LOWER QUADRANTS AND ACTIVE TO TYMPANIC IN UPPER QUADRANTS. NO BOWEL MOVEMETN SEE YET THIS SHFIT. BLOOD CULTURE RESULTS RETURNED. IV ABX GIVEN. PLAN OF CARE REVIEWED IN DETAIL WITH PT AND FAMILY. MONITORING LABRATORY VALUES. PT VOIDING QUANTITY SUFFIENT ALTHOUGH URINE IS DARK TEA IN COLOR. PT USES CALL LIGHT AND MAKES NEEDS KNOWN.
--- NOTE | 2023-03-20 16:13 | NUR ---
THIS RN TO ROOM TO CHECK ON PT. PT VISITING WITH HIS LINE MECHANIC AND HIS . PT DENIES PAIN AND NASUEA. PT REPORTS HEADACHE HAS RESOLVED WITH THE COFFEE. PT DENIES REQUESTS OR COMPLAINTS. CALL LIGHT WITHIN REACH. BED RAILS UP.
[2023-03-20 17:31] VITALS: BP 123/66
--- NOTE | 2023-03-20 17:36 | NUR ---
THIS RN TO ROOM TO CHECK ON PT. PT DENIES PAIN OR NAUSEA. PT UP TO AMBULATE IN REARDON, INDEPENDANT WITH . PT SIPPING ON CLEAR LIQUID DINNER TRAY. NO ADDITIONAL REQUESTS OR COMPLAINTS. CALL LIGHT WITHIN REACH. BED RAILS UP.
--- NOTE | 2023-03-20 18:04 | NUR ---
PT BACK TO ROOM AND PLAYING CARDS WITH HIS . PT REPROTS OCATIONAL BLURRED VISION. PT REPORTS IT DOES NOT INTERFERE WITH HIS ACTIVITIES. PT DENIES PAIN AND NASUEA AT THIS TIME. IV ABX STARTED THROUGH LEFT AC IV SITE, WNL WITH NO S/S OF PHEBITIS PRESENT. PT DENEIS ADDITIONAL REQUESTS OR COMPLAINTS. CALL LIGHT WITHIN REACH.
--- NOTE | 2023-03-20 18:38 | NUR ---
IV PUMP ALARMING, FLAGYL INFUSION AND FLUSH COMPELTE. IV FLUSHED AND SALINE LOCKED. PT REMAINS UP TO CHAIR, READING A BOOK. PT DENIES REQUESTS OR COMPLAINTS. CALL LIGHT WITHIN REACH.
--- NOTE | 2023-03-20 19:05 | NUR ---
REPORT RECIEVED FROM EVERETT BRIONES. pt LAYING IN BED. IVF INFUSING, SITE ASSESSED, WNL. BOARD UPDATED. CALL LIGHT WITHIN REACH.
[2023-03-20 20:25] VITALS: BP 131/68
--- NOTE | 2023-03-20 20:43 | NUR ---
ASSESSMENT AND VITAL SIGNS DONE. IV SITES ASSESSED, WNL. IV ABX INFUSING PER ORDER, SEE MAR. IVF INFUSING PER ORDER, SEE MAR. WATER REFRESHED. pt HAS NO COMPLAINTS AT THIS TIME. pt INDEPENDENT IN THE RM. CALL LIGHT IN REACH.
--- NOTE | 2023-03-20 23:23 | NUR ---
RESP OBSERVED, EVEN AND UNLABORED.
--- NOTE | 2023-03-21 01:35 | NUR ---
PATIENT IN BED RESTING WITH EYES CLOSED. RESP OBSERVED. CALL LIGHT WITHIN REACH.
--- NOTE | 2023-03-21 04:01 | NUR ---
pt UP WALKING IN THE HALLS. pt DENIES ANY NEEDS AT THIS TIME. CALL LIGHT WITHIN REACH.
[2023-03-21 05:15] VITALS: BP 121/67
[2023-03-21 05:47] LABS: BASOPHILS 0.2 % (0-2); EOSINOPHILS 2.6 % (0-6); HEMATOCRIT 32.9 % (35.0-50.0); HEMOGLOBIN 11.5 g/dL (12.0-18.0); LYMPHOCYTES 4.9 % (24-44); MCH 31.1 (27-36); MCHC 34.9 g/dl (30-36); MONOCYTES 11.2 % (0-12); NEUTROPHILS 81.1 % (39-80); PLATELET COUNT 117 K/uL (140-440); RBC 3.69 M/ul (4.3-5.7); RDW 13.2 (10.5-15.0)
[2023-03-21 06:12] LABS: ALBUMIN 2.6 g/dL (3.4-5.0); ALBUMIN/GLOBULIN RATIO 0.9 (1.1-2.4); ANION GAP 10.4 (7-21); BILIRUBIN, TOTAL 1.6 ng/dL (0.2-1.0); CALCIUM 8.3 mg/dL (8.5-10.1); POTASSIUM 3.4 mmol/L (3.5-5.1); PROTEIN, TOTAL 5.5 g/dL (6.4-8.2)
--- NOTE | 2023-03-21 07:32 | NUR ---
REPORT RECIEVED FROM ANSELMO METZ. PT UP TO CHAIR ON PHONE. REPORTS HE HAS HAD A BM. PT STATES NO NEEDS AT THIS TIME, CALL LIGHT WITHIN REACH. ASSUMING CARE OF PT WITH ANSELMO FLOYD.
--- NOTE | 2023-03-21 07:53 | NUR ---
REPORT RECEIVED FROM ANSELMO CRESPO. BETO BRIONES ASSUMING CARE OF PT WITH ASSISTANCE FROM THIS RN. PT UP TO CHAIR, TALKING ON PHONE. PT DENIES REQUESTS OR COMPLAINTS. URINAL EMPTIED OF 300ML DARK YELLOW URINE, AIRCREWMAN IN COLOR COMPARED TO YESTERDAY. BOWEL MOVEMENT ALSO NOTED THIS MORNING, SOFT AND BROWN, JORDAN RED BLOOD SEEN ON TOIELT PAPER. PT REPORTS "THAT'S NORMAL FOR MED I HAVE HEMRROIDS." CALL LIGHT WITHIN REACH.
--- NOTE | 2023-03-21 07:58 | NUR ---
recieved report emre nurse at 0730. pt at the time was asllep with unlabored breathing noted. pt is currently awake in bed watching television. no other cares needed when offered or requested. call light within reach
--- NOTE | 2023-03-21 08:28 | NUR ---
This TECHNICAL AIDE assumed TECHNICAL AIDE cares for this PT. PT is up in the chair for breakfast. Denies needing any assistance at this time.
--- NOTE | 2023-03-21 09:04 | NUR ---
MEDICATION DUE. PT REMAINS UP TO CHAIR. PT DENIES PAIN AND NAUSEA. IV SITES ASSESSED, WNL. NO S/S OF PHELBITIS PRESENT. IV MEDICAITONS STARTED (SEE MAR). POTSSIUM INFUSING INTO LEFT AC IV SITE. IV FLUIDS AND CEFEPIME INFUSING IN TO RIGHT AC. ICE WATER REFILLED. PT DENIES ADDITIONAL REQUESTS OR COMPLAINTS. PTS PRIMARY RN UPDATED. CALL LIGHT WITHIN REACH.
--- NOTE | 2023-03-21 09:20 | NUR ---
PT UP TO CHAIR. PT DENIES PAIN OR NAUSEA AT THIS TIME. IV SITES ASSESSED BY ANSELMO FLOYD. PT AMBULATING AROUND ROOM AND TO RESTROOM INDEPENDENTLY. ABDOMEN MODERATELY DISTENDED, NON-TENDER TO PALPATION. ACTIVE BOWEL TONES, BM THIS MORNING. PT TOLERATING FULL LIQUID DIET WELL. SCLERA OF EYES HAVE MILD YELLOW COLORING, IMPROVED FROM PREVIOUS ASSESSMENTS. PT STATES NO FURTHER NEEDS AT THIS TIME, CALL LIGHT WITHIN REACH.
--- NOTE | 2023-03-21 09:42 | NUR ---
PT CALL LIGHT ON. IV SITE TO LEFT AC LEAKING. IV ASSESSED, CONTINUES TO LEAK. PT DENIES PAIN AT SITE. IV DC'D PER PROTOCOL. NEW IV STARETED TO LEFT HAND PER PROTOCOL, BRISK BLOOD RETURN NOTED. IV POTASSIUM INFUSION SWITCHED TO NEW LEFT HAND IV SITE. PT TOELRATED WELL. NO ADDITIONAL REQUESTS OR COMPLAINTS. PROJECT CONSTRUCTION MANAGER TO BEDSIDE TO VISIT WITH PT. CALL LIGHT WITHIN REACH. PTS PRIMARY RN UPDATED
[2023-03-21 09:57] VITALS: BP 128/74
--- NOTE | 2023-03-21 10:23 | NUR ---
THIS RN TO ROOM TO CHECK ON PT. PT UP TO RESTROOM, INDEPENDANT, NO ASSISTANCE NEEDED. IV ABX DUE. GIVEN ORDERED (SEE MAR), INFUSING WITH CEFEPIME (COMPATABILITY CONFIRMED BY PHARMACIST). PT VOIDING QUANTITY SUFFICIENT. PT DENIES PAIN OR NAUSEA. NO ADDITIONAL REQUESTS OR COMPLAINTS. CALL LIGHT WITHIN REACH. BED RAILS UP.
--- NOTE | 2023-03-21 11:00 | NUR ---
METRONIDAZOLE INFUSION COMPLETE, LINE FLUSHED, OTHER LINES CONTINUE INFUSING. PT STATES NO NEEDS AT THIS TIME, CALL LIGHT WITHIN REACH.
--- NOTE | 2023-03-21 11:45 | NUR ---
PT WALKING INDEPENDENTLY AROUND UNIT, DENIES PAIN, STATES NO NEEDS AT THIS TIME.
--- NOTE | 2023-03-21 11:50 | NUR ---
DOWN TO SEE PATIENT, PATIENT UP WALKING IN THE REARDON. WILL RETURN AT LATER TIME TO COMPLETE ASSESSMENT.
--- NOTE | 2023-03-21 12:50 | NUR ---
THIS RN ENTERS ROOM, PT APPEARS VERY TEARFUL, STATES SHE IS "EXTREMELY ANXIOUS AFTER SEEING MY SON AND I HAD TO TALK TO MY EX-". PT REQUESTS "SOMETHING FOR ANXIETY". MD NOTIFIED, STATES OKAY TO GIVE ATIVAN IV. PT IV COMES OUT ON OWN AFTER SHOWER, NEW IV START ATTEMPTED, ANSELMO FLOYD CALLED TO ATTEMPT.
--- NOTE | 2023-03-21 13:31 | NUR ---
PT UP TO CHAIR PLAYING GAMES WITH . PT DENIES PAIN AT THIS TIME. ABDOMEN CONTINUES TO BE MODERATELY DISTENDED, NON-TENDER. BOWEL TONES ACTIVE, PT DENIES NAUSEA. PT TOLERATING FULL LIQUID DIET/LACTOSE INTOLERANT DIET WELL. PT STATES NO FURTHER NEEDS AT THIS TIME, CALL LIGHT WITHIN REACH.
[2023-03-21 13:40] VITALS: BP 137/70
--- NOTE | 2023-03-21 13:52 | NUR ---
PUMP ALARMING, POTASSIUM INFUSION AND FLUSH COMPLETE. IV FLUSHED AND SALINE LOCKED. ALCOHOL CAP APPLIED. PT DENIES PAIN AND NAUSEA. URINAL EMPTIED OF 600ML YELLOW URINE, COLOR RETURNED TO NORMAL ALTHOUGH REMAINS CONCENTRATED. PT DENIES ADDITIONAL REQUESTS OR COMPLAINTS. CALL LIGHT WITHIN REACH. BED RAILS UP.
--- NOTE | 2023-03-21 14:11 | NUR ---
MS SOFI. CONNECTED WITH PT AND THEY WERE WALKING HALLS. PROVIDED SUPPORTIVE PRESENCE. FACILITATED STORY-TELLING. PROVIDED SILENT PRAYER.
--- NOTE | 2023-03-21 14:22 | NUR ---
UR NOTE [facility] PANCREATITIS (ISC) INPATIENT 03/18/23 MET CLINICAL INDICATIONS FOR ADMISSION TO INPATIENT CARE GL DAY 1
--- NOTE | 2023-03-21 15:46 | NUR ---
PT RN TO ROOM TO CHECK ON PT. PT VISITING WITH FRIENDS. PT DENIES PAIN AND NAUSEA. NO ADDITIONAL REQUESTS OR COMPLAINTS. CALL LIGHT WITHIN REACH. BED RAILS UP.
--- NOTE | 2023-03-21 15:59 | NUR ---
PT HERE FOR PANCREATITIS. PT WALKING AROUND ROOM AND UNIT INDEPENDENTLY. ADVANCED TO FULL LIQUID DIET TODAY, TOLERATING WELL, LACTOSE INTOLERANT DIET PER PT REQUEST. PT HAS HAD BM TODAY, ACTIVE BOWEL TONES, STATES THERE IS MINIMAL AMOUNT OF BRIGHT RED BLOOD "LIKE A DROP" WHEN WIPING, STATES HE HAS "HEMORROIDS". ABDOMEN MODERATELY DISTENDED THIS SHIFT NON-TENDER. PT DENIES NAUSEA. PT UP TO WALK FREQUENTLY TODAY. HAS BEEN AT THE BEDSIDE THIS AFTERNOON. PT DENIES PAIN THROUGHOUT SHIFT. USES CALL LIGHT APPROPRIATELY.
--- NOTE | 2023-03-21 16:17 | NUR ---
PT UP TO AMBULATE IN REARDON WITH HIS , PT STEADY ON FEET. NO ASSISTANCE NEEDED.PT DENIES PAIN OR NAUSEA.
--- NOTE | 2023-03-21 16:56 | NUR ---
THIS RN TO ROOM TO CHECK ON PT. PT UP TO CHAIR. PLAYING CARDS WITH HIS . PT DENIES PAIN AND NAUSEA. URINAL EMPTIED OF 700ML CLEAR YELLOW URINE, MUCH BETTER IN APPEARANCE. PT DENIES REQUESTS OR COMPLAITNS. CALL LIGHT WITHIN REACH.
[2023-03-21 17:27] VITALS: BP 134/78
--- NOTE | 2023-03-21 18:18 | NUR ---
PT UP TO RESTROOM, STATES NO NEEDS AT THIS TIME.
--- NOTE | 2023-03-21 19:05 | NUR ---
REPORT RECIEVED FROM EVERETT BRIONES AND BETO BRIONES. BOARD UPDATED. pt RESTING IN BED. IVF INFUSING, WNL. CALL LIGHT WITHIN REACH.
[2023-03-21 20:12] VITALS: BP 118/57
--- NOTE | 2023-03-21 20:16 | NUR ---
ASSESSMENT AND VITAL SIGNS DONE. IV ABX INFUSING, SEE MAR. pt DENIES PAIN AT THIS TIME. WATER REFRESHED. SCHEDULED MEDICATIONS ADMINSTERED, SEE MAR. IVF SITES ASSESSED, WNL. IVF INFUSING PER ORDER, SEE MAR. CALL LIGHT WITHIN REACH. NO OTHER NEEDS AT THIS TIME.
--- NOTE | 2023-03-21 22:21 | NUR ---
pt UP TO CHAIR READING A BOOK. pt DENIES NEEDS AT THIS TIME. CALL LIGHT IN REACH AT THIS TIME
--- NOTE | 2023-03-22 00:02 | NUR ---
pt C/O OF HEAD ACHE PAIN AT THIS TIME. CALL PLACED TO MD BENSON. NEW ORDERS RECIEVED TORB.
--- NOTE | 2023-03-22 00:37 | NUR ---
PRN PAIN MEDICATION ADMINISTERED. NO OTHER NEEDS AT THIS TIME. CALL LIGHT IN REACH.
--- NOTE | 2023-03-22 02:15 | NUR ---
IV ABX INFUSING, SEE MAR. pt RESTING IN BED. CALL LIGHT WITHIN REACH. pt DENIES ANY NEEDS AT THIS TIME.
--- NOTE | 2023-03-22 04:10 | NUR ---
pt IN BED RESTING WITH EYES CLOSED. RR EVEN AND UNLABORED. CALL LIGHT IN REACH.
[2023-03-22 05:22] VITALS: BP 130/71
[2023-03-22 06:00] LABS: BASOPHILS 0.4 % (0-2); EOSINOPHILS 3.2 % (0-6); HEMOGLOBIN 11.6 g/dL (12.0-18.0); LYMPHOCYTES 9.4 % (24-44); MCH 30.6 (27-36); MONOCYTES 18.5 % (0-12); NEUTROPHILS 68.5 % (39-80); PLATELET COUNT 124 K/uL (140-440); RBC 3.78 M/ul (4.3-5.7); RDW 12.9 (10.5-15.0)
--- NOTE | 2023-03-22 06:00 | NUR ---
ASSESSMENT DONE. IVF INFUSING WNL. pt DENIES ANY NEEDS AT THIS TIME. CALL LIGHT IN REACH AT THIS TIME.
[2023-03-22 06:15] LABS: ALBUMIN 2.5 g/dL (3.4-5.0); ALBUMIN/GLOBULIN RATIO 0.81 (1.1-2.4); ANION GAP 10.6 (7-21); BILIRUBIN, TOTAL 1.1 ng/dL (0.2-1.0); BUN/CREATININE RATIO 10.67 (6.0-28.6); CALCIUM 8.4 mg/dL (8.5-10.1); CREATININE, SERUM 1.03 mg/dL (0.70-1.30); POTASSIUM 3.6 mmol/L (3.5-5.1); PROTEIN, TOTAL 5.6 g/dL (6.4-8.2)
--- NOTE | 2023-03-22 07:44 | NUR ---
MORNING ASSESSMENT COMPLETE. PATIENT BACK TO SLEEP. IV CEFAPIME INFUSING FOR 4 HOURS.
--- NOTE | 2023-03-22 08:03 | NUR ---
This PHOTOGRAMMETRIC TECHNICIAN assumed PHOTOGRAMMETRIC TECHNICIAN cares for this pt from endoscope technician PHOTOGRAMMETRIC TECHNICIAN. PT is currently resting in bed with eyes closed. Respirations even and unlabored. Call light within reach.
--- NOTE | 2023-03-22 09:55 | NUR ---
PATIENT SITTING UP TO CHAIR, ATE 100% OF BREAKFAST. PATIENT GIVEN CUP OF COFFEE AND ICE WATER, DENIES OTHER NEEDS.
[2023-03-22 10:05] VITALS: BP 129/59
--- NOTE | 2023-03-22 10:43 | NUR ---
PATIENT AND AWAITING DOCTOR TO ROUND.
--- NOTE | 2023-03-22 10:49 | NUR ---
MS FARAH. 30 MINUTES. PT AND EXPRESSED HOPE FOR POSITIVE PATH FORWARD. FACILITATED STORY TELLING. PROVIDED PRAYER. PT AND EXPRESSED OPTIMISM.
--- NOTE | 2023-03-22 10:58 | NUR ---
DR. BENSON IN TO SEE PATIENT. IV FLAGYL INFUSING FOR 30 MINUTES.
--- NOTE | 2023-03-22 12:27 | NUR ---
PATIENT UP AMBULATING IN HALLWAY, BACK TO ROOM FOR LUNCH.
[2023-03-22 13:05] VITALS: BP 135/66
--- NOTE | 2023-03-22 13:53 | NUR ---
PATIENT IS RESTING IN BED, RATES PAIN 0/10. IV CEFAPIME INFUSING FOR 4 HOURS.
[2023-03-22] MEDS ORDERED: AMOX TR-K CLV1 EAC1 PO (14:37)
[2023-03-22] MEDS ORDERED: METRONIDAZOLE500 MG PO (14:39)
--- NOTE | 2023-03-22 14:47 | NUR ---
X2 IV REMOVED WITH CATHETER (S) INTACT. PENDING DISCHARGE.
== END 2023-03-22 15:00 | disposition home or self-care (01) | DRG 438 ==
LOC: ED 13:48 → MS 17:30
PROVIDERS: Emergency Medicine; ADMIT Family Medicine; ATTEND Family Medicine
DX: K85.90 Acute pancreatitis without necrosis or infection, unspecified (principal); K75.0 Abscess of liver; N17.9 Acute kidney failure, unspecified; R78.81 Bacteremia; E80.6 Other disorders of bilirubin metabolism; R74.01 Elevation of levels of liver transaminase levels; E78.5 Hyperlipidemia, unspecified; I10 Essential (primary) hypertension; F10.90 Alcohol use, unspecified, uncomplicated; K80.50 Calculus of bile duct without cholangitis or cholecystitis without obstruction; B95.2 Enterococcus as the cause of diseases classified elsewhere; K21.9 Gastro-esophageal reflux disease without esophagitis; M50.30 Other cervical disc degeneration, unspecified cervical region; E87.6 Hypokalemia; K75.9 Inflammatory liver disease, unspecified; F32.A Depression, unspecified; R32 Unspecified urinary incontinence; Z85.46 Personal history of malignant neoplasm of prostate; Z86.79 Personal history of other diseases of the circulatory system; Z88.8 Allergy status to other drugs, medicaments and biological substances; Z91.041 Radiographic dye allergy status; Z79.899 Other long term (current) drug therapy; Z98.890 Other specified postprocedural states; Z90.49 Acquired absence of other specified parts of digestive tract; Z85.47 Personal history of malignant neoplasm of testis; Z90.89 Acquired absence of other organs; Z98.52 Vasectomy status; Z87.891 Personal history of nicotine dependence; Z71.41 Alcohol abuse counseling and surveillance of alcoholic
CPT/HCPCS: 36415; 74176; 76705; 80048; 80053; 80061; 80076; 81001; 83690; 83735; 84100; 85025; 85610; 85730; 87088; 94760; A9270; C9113; J0692; J1170; J1885; J2405; J3480; J3490; J7030; J7060; J7121